=== PATIENT | male | born 1965 | race Caucasian/White ===

== ENCOUNTER 2018-08-05 18:36 | Emergency (ER) | payer OTHER ==
[~2018-08-05] VITALS: Ht 172.7 cm; Wt 82.0 kg
[2018-08-05] MEDS ORDERED: SODIUM CHLORIDE 0.9% 1,000 ML IV ONE (20:48)
[2018-08-05] MEDS ORDERED: ONDANSETRON HCL 4MG/2ML INJ IV STA (20:48)
[2018-08-05 21:30] LABS: BASOPHILS % 0.3 % (0.0-2.0); EOSINOPHILS % 1.3 % (0.0-5.0); HEMATOCRIT. 42.5 % (42.0-52.0); HEMOGLOBIN. 14.2 g/dL (14.0-18.0); LYMPHOCYTES % 13.6 % (20.0-50.0); MEAN CORPUSCULAR HEMOGLOBIN 28.6 pg (28.0-32.0); MEAN CORPUSCULAR VOLUME 85.8 fL (80.0-94.0); MEAN PLATELET VOLUME 8.5 fl (7.4-10.4); MONOCYTES % 5.7 % (2.0-8.0); NEUTROPHILS % 79.1 % (40.0-76.0); PLATELET 259 x1000/uL (130-400); RED BLOOD CELL COUNT 4.96 mill/uL (4.7-6.1); RED CELL DISTRIBUTION WIDTH 14.7 % (11.6-14.6)
[2018-08-05] MEDS ORDERED: MORPHINE SULFATE 4 MG/ML CPJ (NOT FOR IM USE) IV ONE (21:30)
[2018-08-05 21:58] LABS: CHLORIDE 105 mEq/L (98-107)
[2018-08-05] MEDS ORDERED: IOHEXOL-300 100 ML BOTTLE ONE (22:58)
[2018-08-05] MEDS ORDERED: IOHEXOL-300 50 ML BOTTLE IV ONE (22:58)
[2018-08-06 00:47] VITALS: BP 131/86
== END 2018-08-06 00:51 | disposition home or self-care (01) ==
LOC: ER 18:36
DX: R56.9 Unspecified convulsions (principal); E11.9 Type 2 diabetes mellitus without complications; R11.0 Nausea; M54.9 Dorsalgia, unspecified; I11.9 Hypertensive heart disease without heart failure; Z95.0 Presence of cardiac pacemaker
CPT/HCPCS: 36415; 70470; 80053; 84484; 85025; 93005; 96374; 96375; 99284; J2270; J2405; J7030; Q9967; Z7610